=== PATIENT | male | born 1970 | race Caucasian/White ===

== ENCOUNTER 2018-12-10 12:44 | Emergency (ER) | payer OTHER ==
[~2018-12-10] VITALS: Ht 172.7 cm; Wt 88.5 kg
[~2018-12-10 12:44] MED LIST: DULERA 100 MCG/13 GM IH; FLOMAX0.4 MG PO; IBUPROFEN 800800 MG PO; NORCO 5-325 TA1 EACH PO; ZOFRAN4 MG PO
[2018-12-10] MEDS ORDERED: PREDNISONE 20 M20 M1 PO (15:04)
[2018-12-10 15:41] VITALS: BP 144/100
== END 2018-12-10 15:42 | disposition home or self-care (01) ==
LOC: M.ERS 12:44
DX: M79.89 Other specified soft tissue disorders (principal); J45.909 Unspecified asthma, uncomplicated